=== PATIENT | female | born 1995 | race Caucasian/White ===

== ENCOUNTER 2023-11-22 06:30 | Emergency (ER) | payer OTHER ==
[~2023-11-22] VITALS: Ht 167.6 cm; Wt 72.6 kg
[2023-11-22] MEDS ORDERED: OXYMETAZOLINE NASAL 0.05% 15 ML SPRAY NS ONE (07:11)
[2023-11-22] MEDS ORDERED: ASCORBIC ACID 500 MG TABLET ONE (07:12)
[2023-11-22] MEDS: ASCORBIC ACID 500 MG TABLET PO ONE (07:12)
[2023-11-22] MEDS: OXYMETAZOLINE NASAL 0.05% 15 ML SPRAY NS ONE (07:12)
[2023-11-22 07:52] VITALS: BP 111/69; O2SAT 100
== END 2023-11-22 07:52 | disposition home or self-care (01) ==
LOC: ER 06:57
DX: U07.1 COVID-19 (principal); R04.0 Epistaxis; J45.909 Unspecified asthma, uncomplicated; Z60.2 Problems related to living alone
CPT/HCPCS: A4606; A4663

== ENCOUNTER 2024-11-16 17:27 | Emergency (ER) | payer OTHER ==
[~2024-11-16] VITALS: Ht 170.2 cm; Wt 64.9 kg
[2024-11-16 21:23] LABS: CREATININE 0.5 mg/dL (0.6-1.3); SODIUM SERUM 140 mmol/L (136-145); UREA NITROGEN, BLOOD 11 mg/dL (7-18)
[2024-11-16 22:30] VITALS: BP 118/74; TEMP 98.4; O2SAT 99
== END 2024-11-16 22:30 | disposition home or self-care (01) ==
LOC: ER 17:33
DX: M79.661 Pain in right lower leg (principal); M54.50 Low back pain, unspecified; R25.2 Cramp and spasm; G89.29 Other chronic pain; J45.909 Unspecified asthma, uncomplicated; Z87.19 Personal history of other diseases of the digestive system; Z60.2 Problems related to living alone
CPT/HCPCS: 36415; 83735; A4606; A4663